=== PATIENT | male | born 1970 | race Caucasian/White ===

== ENCOUNTER 2017-01-29 11:16 | Inpatient (IN) | payer OTHER ==
[~2017-01-29] VITALS: Ht 188 cm; Wt 109.4 kg
[~2017-01-29 11:16] MED LIST: DOXYCYCLINE HY100 MG PO; FEXOFENADINE H180 MG PO; FLOVENT 22120 INHALA IH; FLUTICASONE PRO16 GM BOTH NARES; MOTRIN600 MG PO; PREDNISONE50 MG PO; ROBITUSSIN AC,T10 ML PO; VENTOLIN HFA18 GM IH
[2017-01-29 12:06] LABS: BASOPHIL COUNT 0.1 K/uL (0-0.1); EOSINOPHIL (%) 1.7 % (0-5); EOSINOPHIL COUNT 0.2 K/uL (0-0.3); HEMATOCRIT 45.3 % (38.0-50.0); IMMATURE GRANULOCYTE (%) 0.3 % (0.0-0.7); INSTRUMENT ABS NEUTROPHIL CT 5.9 K/uL; LYMPHOCYTE COUNT 3.1 K/uL (1.0-2.8); MCH 32.8 PG (29.0-34.0); MCHC 34.4 G/DL (30.0-36.0); MCV 95.4 FL (86-99); MEAN PLAT.VOLUME 11.3 uM^3 (9.0-12.4); MONOCYTE (%) 7.3 % (3-12); MONOCYTE COUNT 0.7 K/uL (0-0.8); NEUTROPHIL (%) 58.5 % (45-76); NEUTROPHIL COUNT 5.9 K/uL (1.8-6.4); PLATELET COUNT 251 K/uL (156-360); RBC DIS.WIDTH-CV 12.2 % (11.8-14.6); RBC DIS.WIDTH-SD 42.8 % (39-53); RED BLOOD COUNT 4.75 M/uL (4.00-5.50)
[2017-01-29] MEDS ORDERED: PROAIR HFA8.5 GM IH (12:07)
[2017-01-29] MEDS ORDERED: DULERA 100 MCG/13 GM IH (12:08)
[2017-01-29] MEDS ORDERED: LISINOPRIL5 MG PO (12:08)
[2017-01-29] MEDS ORDERED: MOTRIN400 MG PO (12:09)
[2017-01-29] MEDS ORDERED: TYLENOL REGULA325 MG PO (12:10)
[2017-01-29 13:23] LABS: ERTH.SED.RATE 13 MM/HR (0-15)
[2017-01-29 14:04] LABS: TROP-I INTERPRETATION NEGATIVE; TROPONIN-I 0.23 ng/mL (0.0-0.30)
[2017-01-29 14:36] LABS: LYME DISEASE SEROLOGY SCREEN NEGATIVE (NEGATIVE)
[2017-01-29 14:55] VITALS: BP 151/95
[2017-01-29 15:55] VITALS: BP 146/94
[2017-01-29 19:29] VITALS: BP 129/76
[2017-01-29 23:11] LABS: TROP-I INTERPRETATION NEGATIVE; TROPONIN-I < 0.01 ng/mL (0.0-0.30)
[2017-01-29 23:45] VITALS: BP 138/74
[2017-01-30 04:53] VITALS: BP 132/64
[2017-01-30 06:09] LABS: TROP-I INTERPRETATION NEGATIVE; TROPONIN-I < 0.01 ng/mL (0.0-0.30)
[2017-01-30 09:11] VITALS: BP 153/84
[2017-01-30 11:13] LABS: HIV INDEX 0.09; HIV-1/2 AB/AG COMBO Nonreactive
[2017-01-30 12:24] LABS: POINT-OF-CARE METER ID UU14149397
[2017-01-30 16:39] VITALS: BP 132/81
[2017-01-30 16:43] LABS: POINT-OF-CARE METER ID UU14149397
[2017-01-30 21:36] LABS: POINT-OF-CARE METER ID UU14208753
[2017-01-30 23:06] VITALS: BP 128/56
[2017-01-31 06:20] LABS: EOSINOPHIL (%) 0 % (0-5); IMMATURE GRANULOCYTE (%) 1.5 % (0.0-0.7); IMMATURE GRANULOCYTE COUNT 0.3 K/uL; INSTRUMENT ABS NEUTROPHIL CT 17.3 K/uL; LYMPHOCYTE COUNT 1.7 K/uL (1.0-2.8); MCH 32.6 PG (29.0-34.0); MCHC 33.9 G/DL (30.0-36.0); MCV 96.2 FL (86-99); MEAN PLAT.VOLUME 11.7 uM^3 (9.0-12.4); MONOCYTE (%) 3.4 % (3-12); MONOCYTE COUNT 0.7 K/uL (0-0.8); NEUTROPHIL (%) 86.6 % (45-76); NEUTROPHIL COUNT 17.3 K/uL (1.8-6.4); PLATELET COUNT 242 K/uL (156-360); RBC DIS.WIDTH-CV 12.8 % (11.8-14.6); RBC DIS.WIDTH-SD 45.1 % (39-53); RED BLOOD COUNT 4.26 M/uL (4.00-5.50); WHITE BLOOD COUNT 19.9 K/uL (4.1-10.2)
[2017-01-31 06:34] LABS: POINT-OF-CARE METER ID UU14117124
[2017-01-31 06:37] LABS: ALKALINE PHOSPHATASE 46 IU/L (3-129); ANION GAP 11 MEQ/L (2-14); CHLORIDE 109 MEQ/L (99-109); GFR ESTIMATE (CALCULATED) > 59 mL/min/ (58.99-99999); SAMPLE HEMOLYSIS CHECK 0; SAMPLE ICTERIC CHECK 0; SAMPLE LIPEMIA CHECK 0; SODIUM 142 MEQ/L (136-147); UREA NITROGEN (BUN) 18 mg/dL (9-23)
[2017-01-31 06:38] LABS: GLUCOSE 160 mg/dL (70-99); POTASSIUM 3.7 MEQ/L (3.7-5.4); TOTAL BILIRUBIN 0.4 MG/DL (0.0-1.0)
[2017-01-31 07:42] VITALS: BP 136/73
[2017-01-31] MEDS ORDERED: NICOTINE PATCH1 EAC1 TD (09:23)
[2017-01-31] MEDS ORDERED: Vitamin B-12 SL (09:24)
[2017-01-31] MEDS ORDERED: PRAVASTATIN SOD20 MG PO (09:25)
[2017-01-31] MEDS ORDERED: PREDNISONE10 MG PO (09:25)
[2017-01-31 09:33] LABS: TREPONEMA ANTIBODY NEGATIVE (NEGATIVE)
[2017-01-31 11:40] LABS: POINT-OF-CARE METER ID UU14117124
[2017-01-31 18:23] LABS: TOXOPLASMA IgG+ <7.20 IU/mL (<7.20); TOXOPLASMA IgM (ACUTE ONLY)+ <8.00 AU/mL (<8.00)
[2017-02-01 02:50] LABS: TB AG-NIL <0.00 IU/mL (())
[2017-02-01 20:55] LABS: Cytomegalovirus IgM Antibody+ <30.00 AU/mL (<30.00)
== END 2017-01-31 15:36 | disposition home or self-care (01) | DRG 123 ==
LOC: EME 11:16 → EDOF 11:57 → 3EAST 11:57 → ENRESERV 12:10 → EDOF 12:13 → ENRESERV 13:46 → 3EAST 14:47
PROVIDERS: Hospitalist; Internal Medicine; Internal Medicine Infectious Disease; Physician Assistant Medical
DX: H46.9 Unspecified optic neuritis (principal); G35 Multiple sclerosis; H54.62 Unqualified visual loss, left eye, normal vision right eye; H47.10 Unspecified papilledema; E78.5 Hyperlipidemia, unspecified; I10 Essential (primary) hypertension; R73.9 Hyperglycemia, unspecified; F17.210 Nicotine dependence, cigarettes, uncomplicated; J45.909 Unspecified asthma, uncomplicated; Z68.30 Body mass index [BMI] 30.0-30.9, adult
CPT/HCPCS: 36415; 70544; 70549; 70553; 80053; 80061; 82164 90; 82607; 82746; 82947; 82948; 83036; 83090 90; 83516 90; 83695 90; 84484; 85025; 85025 91; 85384; 85651; 86038; 86140; 86480 90; 86611 90; 86618; 86644 90; 86645 90; 86703; 86777 90; 86778 90; 86780; 93306; 94640; 94640 76; 99281; 99285; J1815; J2270; J2405; J2930; J7030